=== PATIENT | female | born 1950 | race Caucasian/White ===

== ENCOUNTER 2019-03-08 13:50 | Emergency (ER) | payer OTHER, MEDICARE, SELFPAY ==
[2018-06-01 12:41] VITALS: BMI 37.0
[2019-03-08 13:53] VITALS: BP 123/54; PULSE 67; RESP 16; TEMP 36.5; O2SAT 99; BMI 37.2
--- NOTE | 2019-03-08 14:08 | EKG12_ITS ---
Test Reason : CP Blood Pressure : / mmHG Vent. Rate : 066 BPM Atrial Rate : 066 BPM P-R Int : 114 ms QRS Dur : 088 ms QT Int : 426 ms P-R-T Axes : 050 019 037 degrees QTc Int : 446 ms Normal sinus rhythm Normal ECG Confirmed by MARY ROSADO, TERRI ([id number]), medical transcription editor ELIE TIDWELL ([id number]) on 03/10/2019 11:03:46 AM Referred By: GURPREET Confirmed By:TERRI HERNANDEZ MD
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
--- NOTE | 2019-03-08 14:30 | NURSING ---
NO OLD EKGS
[2019-03-08 14:37] LABS: Absolute Lymphocyte Count 2.01 X10^3/uL (0.83-4.51); Absolute Neutrophil Count 4.6 X10^3/uL (2.0-7.7); Basophil# 0.02 X10^3/uL; Basophil% 0.3 % (0-1); Eosinophil# 0.08 X10^3/uL; Eosinophils% 1.1 % (0-5); Hematocrit 38.5 % (37-47); Hemoglobin 12.4 g/dL (12.0-15.0); Lymphocyte # 2.01 X10^3/ul (4.0); Lymphocyte % 27.3 % (19-41); Mean Corp Hgb Conc 32.2 g/dL (32-36); Mean Corpuscular Hgb 30.8 pg (27.0-32.0); Mean Corpuscular Volume 95.8 fL (81-99); Mean Platelet Vol. 10.7 fl (6.2-12.0); Monocyte# 0.58 X10^3/uL; Monocyte% 7.9 % (0-10); NRBC Flagged by Analyzer 0 % (0-5); Neutrophil # 4.59 X10^3/uL (2.7-7.7); Neutrophil % 62.2 % (47-70); Platelet Count 175 K/mm3 (150-450); RBC Distribution Width CV 13.2 % (11.6-14.6); Red Blood Count 4.02 M/mm3 (4.2-5.4); White Blood Count 7.4 K/mm3 (4.4-11.0)
[2019-03-08 14:56] LABS: ALB/GLOB Ratio 1.1 RATIO (0.9-2.4); AST(SGOT) 36 U/L (15-37); Alanine Aminotransfer ALT/SGPT 49 U/L (13-56); Albumin, Serum 3.8 g/dL (3.2-5.0); Alkaline Phosphatase 44 U/L (45-117); Anion Gap 9 (5-15); BUN 15 mg/dL (7-18); BUN/Creat Ratio 15.6 RATIO (10-20); Calcium,Total 9.5 mg/dL (8.5-10.1); Chloride 99 mmol/L (98-107); Creatinine, Serum 0.96 mg/dL (0.55-1.02); EST Glomerular Filtration Rate 61 mL/min (>60); Est Glom Filt Rate - Afr Amer 74 mL/min (>60); Estimated Creatinine Clearance 43.13 ml/min; Globulin 3.5 g/dL (2.2-4.2); Glucose 249 mg/dL (74-106); Potassium 3.6 mmol/L (3.5-5.1); Protein, Total 7.3 g/dL (6.4-8.2); Sodium Level 136 mmol/L (136-145)
[2019-03-08 15:41] VITALS: BP 110/38; PULSE 65; RESP 17; O2SAT 100
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
[2019-03-08 16:24] VITALS: BP 117/77; PULSE 61; RESP 17; O2SAT 98
== END 2019-03-08 16:25 | disposition home or self-care (01) ==
PROVIDERS: Emergency Provider Emergency Medicine; Family Provider Internal Medicine; PCP Internal Medicine
DX: S20.219A Contusion of unspecified front wall of thorax, initial encounter (principal); V89.2XXA Person injured in unspecified motor-vehicle accident, traffic, initial encounter; Y93.9 Activity, unspecified; Y92.9 Unspecified place or not applicable; Y99.9 Unspecified external cause status; E11.9 Type 2 diabetes mellitus without complications; I10 Essential (primary) hypertension; Z88.1 Allergy status to other antibiotic agents
CPT/HCPCS: 71046; 80053; 84484; 85025; 93005; 96360; 99285; J7040

== ENCOUNTER 2019-03-23 18:40 | Emergency (ER) | payer MEDICARE, OTHER, SELFPAY ==
[2019-03-23 18:41] VITALS: BP 118/50; PULSE 59; RESP 16; TEMP 36.7; O2SAT 100; BMI 33.8
--- NOTE | 2019-03-23 19:39 | CT_ITS ---
STUDY: CT ABDOMEN AND PELVIS WITH CONTRAST REASON FOR EXAM: Female, 68 years old. Right lower quadrant pain RADIATION DOSAGE (If Supplied By Facility): CTDIvol = ( 15.36 ) mGy, DLP = ( 881.42 ) mGycm TECHNIQUE: Transaxial images were obtained from the dome of the diaphragm to the symphysis pubis with oral contrast. IV/Oral Isovue 370 100 was administered. Sagittal and coronal images were reconstructed. Individualized dose optimization techniques were used for this CT. COMPARISON: None. FINDINGS: The visualized lung bases are unremarkable. The visualized portions of the heart are within normal limits. There is decreased attenuation of the liver consistent with steatosis. There is hepatomegaly. There are surgical clips in the gallbladder fossa consistent with a prior cholecystectomy. Normal spleen. Normal pancreas. Normal bilateral adrenal glands. Right kidney shows mild hydronephrosis and there is [id number] right hydroureter. There is thickening of the wall of the right collecting system and ureter are there is mild periureteral and peripelvic stranding. Findings are nonspecific and could represent a recently passed stone, but may also represent pyelonephritis. 5 mm parenchymal calcification in the mid posterior right kidney. Normal left kidney. Normal visualized stomach. Normal small intestine. There are multiple colonic diverticula consistent with diverticulosis. The appendix is visualized and appears normal. Normal abdominal aorta. Normal inferior vena cava. Normal retroperitoneum. Normal urinary bladder. There is atrophy of the uterus. Normal abdominal wall. There are diffuse degenerative changes of the visualized lumbar spine. CT/Abdomen/Pelvis WITH Contrast IMPRESSION: Mild right hydronephrosis and hydroureter. Thickened pelvic and ureteral wall. Findings are most suggestive of pyelonephritis. Electronically Signed: Sudeep Finn MD at 22:07 EST , Service support ,
--- NOTE | 2019-03-23 19:41 | ED.DCSUM_ITS ---
- ER Visit Summary Date of Service: 03/23/19 Chief Complaint: Right lower quadrant abdominal pain History of Present Illness: The patient is a 68 F presenting with right lower quadrant abdominal pain. She states this started today. Gradually worsened throughout the day. She has subjective fever and chills. She has nausea with no vomiting. She had loose stools today. She denies blood in her stool. She has had decreased appetite. She was concerned about possibility of appendicitis. She denies other complaints. Physical Examination: Vitals are stable. Patient is afebrile. Alert no acute distress. HEENT exam is unremarkable. Neck is supple. Lungs are clear and equal bilaterally. Heart is regular rate and rhythm. Abdomen is soft right lower quadrant tenderness with no rebound or guarding Extremities are unremarkable. Skin is warm and dry. No focal neurologic deficit. Remainder of exam is unremarkable. Emergency Department Course and Treatment: She was given Zofran IV. CBC normal except for hemoglobin 11.4. Chemistries show sodium 135, glucose 209, BUN 26, creatinine 1.20. Urinalysis shows 5-10 white blood cells, over [address] abdomen pelvis shows mild right hydronephrosis and hydroureter. Thickened pelvic and ureteral wall. Findings are most suggestive of pyelonephritis. Patient does have a remote history of kidney stones. She is pain-free on reevaluation. Urine culture was sent. This may represent a recently passed kidney stone. She will be started on Bactrim. She was given IV fluids. She is feeling improved in the ED. She will follow-up with her primary care physician. Advised return to the ED for worsening complaints. Disposition: Discharge home Impression: Right lower quadrant pain, pyelonephritis, possible recently passed kidney stone This note was generated with [employer] Realtime dictation software. It may contain incorrect words, spelling, and punctuation that were not noted in review of the chart prior to signing ED Disposition - Plan for ED Patient: Referrals: Subha Carvalho [Primary Care Provider] -
[2019-03-23] MEDS: Ondansetron 4 MG/2 ML Vial IV (20:05)
[2019-03-23 20:07] LABS: Bacteria 0 SEEN /hpf (None Seen); Squamous Epithelial Cells - UA 0 SEEN /hpf (5-10)
[2019-03-23 20:09] LABS: Absolute Lymphocyte Count 1.03 X10^3/uL (0.83-4.51); Absolute Neutrophil Count 8.2 X10^3/uL (2.0-7.7); Basophil# 0.02 X10^3/uL; Basophil% 0.2 % (0-1); Eosinophil# 0.01 X10^3/uL; Eosinophils% 0.1 % (0-5); Hematocrit 35.4 % (37-47); Hemoglobin 11.4 g/dL (12.0-15.0); Lymphocyte # 1.03 X10^3/ul (4.0); Lymphocyte % 10.7 % (19-41); Mean Corp Hgb Conc 32.2 g/dL (32-36); Mean Corpuscular Hgb 30.8 pg (27.0-32.0); Mean Corpuscular Volume 95.7 fL (81-99); Mean Platelet Vol. 10.9 fl (6.2-12.0); Monocyte# 0.39 X10^3/uL; NRBC Flagged by Analyzer 0 % (0-5); Neutrophil # 8.19 X10^3/uL (2.7-7.7); Neutrophil % 84.7 % (47-70); Platelet Count 213 K/mm3 (150-450); RBC Distribution Width CV 13.2 % (11.6-14.6); RBC Distribution Width SD 46.3 fl (35.1-43.9); White Blood Count 9.7 K/mm3 (4.4-11.0)
[2019-03-23 20:09] LABS: Color, Urine Yellow (Yellow); Glucose, Dipstick 1000 mg/dl (Normal); Leukocyte Esterase-Dipstick 25 /ul (Negative); Mucous, Urine 0 SEEN /hpf (<or=2+); Nitrite-Dipstick Negative (Negative); Occult Blood-Urine 250 /ul (Negative); Protein-Dipstick 30 mg/dl (Negative); Urine Bilirubin Dipstick Negative (Negative); Urine Clarity Cloudy (Clear); Urine Urobilinogen Normal (Normal)
[2019-03-23 20:11] LABS: Ketone-Dipstick 150 mg/dl (Negative)
[2019-03-23 20:34] LABS: Red Blood Cells-Urine > 100 SEEN /hpf (0-5)
[2019-03-23 20:35] LABS: White Blood Cells 5-10 SEEN /hpf (0-5)
[2019-03-23 20:49] LABS: Anion Gap 7 (5-15); BUN 26 mg/dL (7-18); BUN/Creat Ratio 21.7 RATIO (10-20); Calcium,Total 9.3 mg/dL (8.5-10.1); Chloride 101 mmol/L (98-107); EST Glomerular Filtration Rate 47 mL/min (>60); Est Glom Filt Rate - Afr Amer 57 mL/min (>60); Glucose 209 mg/dL (74-106); Potassium 4.6 mmol/L (3.5-5.1); Sodium Level 135 mmol/L (136-145)
[2019-03-23] MEDS: 0.9% Normal Saline 1,000 ML 999 ML IV (22:38)
--- NOTE | 2019-03-23 22:51 | ED.DEP ---
ED Disposition - Plan for ED Patient: Instructions: PYELONEPHRITIS, Female (Adult) Prescriptions: Smz/Tmp Ds [Bactrim Ds] 1 tablet PO BID #14 tablet Referrals: Subha Carvalho [Primary Care Provider] -
[2019-03-23] MEDS: Smz/Tmp Ds Tablet 1 TABLET PO (22:59)
[2019-03-23 23:19] VITALS: BP 113/52; PULSE 63; RESP 16; O2SAT 98
== END 2019-03-24 00:54 | disposition home or self-care (01) ==
LOC: ED 20:00
PROVIDERS: Emergency Provider Emergency Medicine; Family Provider Internal Medicine; PCP Internal Medicine
DX: N13.6 Pyonephrosis (principal); R10.31 Right lower quadrant pain; Z87.442 Personal history of urinary calculi
CPT/HCPCS: 74177; 80048; 81001; 85025; 87086; 87088; 96361; 96374; 99284; J7030; Q9967; J2405

== ENCOUNTER → 2020-07-19 14:44 | Outpatient (CLI) | payer MEDICARE, OTHER, SELFPAY ==
[2020-07-19 13:36] VITALS: BMI 35.5
[2020-07-19 16:59] LABS: Absolute Lymphocyte Count 1.44 X10^3/uL (0.83-4.51); Absolute Neutrophil Count 3.3 X10^3/uL (2.0-7.7); Basophil# 0.02 X10^3/uL; Basophil% 0.4 % (0-1); Eosinophil# 0.08 X10^3/uL; Eosinophils% 1.5 % (0-5); Hematocrit 36.8 % (37-47); Hemoglobin 11.6 g/dL (12.0-15.0); Lymphocyte # 1.44 X10^3/ul (4.0); Lymphocyte % 26.7 % (19-41); Mean Corp Hgb Conc 31.5 g/dL (32-36); Mean Corpuscular Hgb 30.4 pg (27.0-32.0); Mean Corpuscular Volume 96.6 fL (81-99); Mean Platelet Vol. 12.3 fl (6.2-12.0); Monocyte# 0.55 X10^3/uL; Monocyte% 10.2 % (0-10); NRBC Flagged by Analyzer 0 % (0-5); Neutrophil # 3.27 X10^3/uL (2.7-7.7); Neutrophil % 60.6 % (47-70); Platelet Count 177 K/mm3 (150-450); RBC Distribution Width CV 13.4 % (11.6-14.6); RBC Distribution Width SD 47.5 fl (35.1-43.9); Red Blood Count 3.81 M/mm3 (4.2-5.4); White Blood Count 5.4 K/mm3 (4.4-11.0)
[2020-07-19 17:08] LABS: Vitamin D,25 Hydroxy 30.4 ng/mL
[2020-07-19 17:10] LABS: Hemoglobin A1c 8.6 % (3.8-5.6)
[2020-07-19 17:12] LABS: ALB/GLOB Ratio 1.1 RATIO (0.9-2.4); AST(SGOT) 27 U/L (15-37); Alanine Aminotransfer ALT/SGPT 55 U/L (13-56); Albumin, Serum 3.6 g/dL (3.2-5.0); Alkaline Phosphatase 46 U/L (45-117); Anion Gap 7 (5-15); BUN 25 mg/dL (7-18); BUN/Creat Ratio 22.7 RATIO (10-20); Calcium,Total 9.4 mg/dL (8.5-10.1); Chloride 103 mmol/L (98-107); Cholesterol 181 mg/dL (200); EST Glomerular Filtration Rate 52 mL/min (>60); Est Glom Filt Rate - Afr Amer 63 mL/min (>60); Globulin 3.2 g/dL (2.2-4.2); Glucose 223 mg/dL (74-106); High Density Lipoprotein 48 mg/dL; Potassium 3.8 mmol/L (3.5-5.1); Protein, Total 6.8 g/dL (6.4-8.2); Sodium Level 137 mmol/L (136-145); Triglycerides 276 mg/dL; Very Low Density Lipoprotein 55 mg/dL (5-40)
[2020-07-19 17:18] LABS: Microalbumin,Random Urine 18.9 mg/L (NO RANGE EST.); Microalbumin:Creatinine Ratio 8.9 mg/g CRE (<30 mg/g CRE)
[2020-07-20 15:10] LABS: Ferritin 25 ng/mL (8-252); Iron 82 ug/dL (50-170); Iron Binding Capacity,Total 361 ug/dL (250-450)
== END ==
PROVIDERS: PCP Internal Medicine; Referring Provider Internal Medicine; Visit Provider Internal Medicine
DX: E11.9 Type 2 diabetes mellitus without complications (principal); M81.0 Age-related osteoporosis without current pathological fracture
CPT/HCPCS: 36415; 80053; 80061; 82043; 82306; 82570; 82728; 83036; 83540; 83550; 85025

== ENCOUNTER → 2020-08-22 14:27 | Outpatient (CLI) | payer MEDICARE, OTHER, SELFPAY ==
[2020-07-19 13:36] VITALS: BMI 35.5
--- NOTE | 2020-08-22 14:43 | BD_ITS ---
STUDY: DUAL ENERGY X-RAY ABSORPTIOMETRY / DXA REASON FOR EXAM: Female, 70 years old. Osteoporosis TECHNIQUE: Bone Mineral Density (BMD) measurements of lumbar spine and bilateral hips were obtained. COMPARISON: None. FINDINGS: Lumbar Spine (L1-L4): g/cm2 (1.006) / T-score (-1.3) / Z-score (0.4) Findings are suggestive of osteopenia with a low fracture risk. Left Femur Total: g/cm2 (0.800) / T-score (-1.7) / Z-score (-0.1) Left Femoral Neck: g/cm2 (0.651) / T-score (-2.8) / Z-score (-1.0) Right Femur Total: g/cm2 (0.809) / T-score (-1.6) / Z-score (0.0) Right Femoral Neck: g/cm2 (0.719) / T-score (-2.3) / Z-score (-0.5) BD/Dexa Bone Density Study IMPRESSION: The patient is considered osteoporotic as outlined below according to World Wilfredo Organization (WHO) criteria with a high fracture risk. Reference Information: The T-score is the number of standard deviations above or below the standard which is normal for young adults at their peak bone mineral density. The World Health Organization (WHO) interprets the T-scores as follows: Above -1 Normal bone density Between -1 and -2.5 Osteopenia Equal to / or below -2.5 Osteoporosis As a practical clinical guideline, osteopenia may be graded as follows: Mild -1 through -1.5 Moderate -1.6 through -2.0 Severe -2.1 through -2.4 The Z-score is the number of standard deviations above or below age-matched controls. A Z-score of less than -1.5 would be considered abnormal. References: 1. NIH Osteoporosis and Related Bone Diseases www osteo.org 2. International Society for Clinical Densitometry www iscd.org 3. National Osteoporosis Foundation www nof.org Electronically Signed: Tadeo Meneses MD at 15:52 EDT , Service support ,
== END ==
PROVIDERS: PCP Internal Medicine; Referring Provider Internal Medicine; Visit Provider Internal Medicine
DX: M81.0 Age-related osteoporosis without current pathological fracture (principal)
CPT/HCPCS: 77080

== ENCOUNTER → 2021-01-31 15:17 | Outpatient (CLI) | payer MEDICARE, OTHER, SELFPAY ==
[2021-01-31 17:23] LABS: ALB/GLOB Ratio 1.2 RATIO (0.9-2.4); AST(SGOT) 22 U/L (15-37); Alanine Aminotransfer ALT/SGPT 39 U/L (13-56); Albumin, Serum 3.6 g/dL (3.2-5.0); Alkaline Phosphatase 40 U/L (45-117); Anion Gap 8 (5-15); BUN 23 mg/dL (7-18); Calcium,Total 10.2 mg/dL (8.5-10.1); Chloride 101 mmol/L (98-107); Creatinine, Serum 0.85 mg/dL (0.55-1.02); EST Glomerular Filtration Rate 70 mL/min (>60); Est Glom Filt Rate - Afr Amer 84 mL/min (>60); Glucose 159 mg/dL (74-106); Potassium 4.1 mmol/L (3.5-5.1); Protein, Total 6.6 g/dL (6.4-8.2); Sodium Level 140 mmol/L (136-145)
== END ==
PROVIDERS: PCP Internal Medicine; Referring Provider Internal Medicine; Visit Provider Internal Medicine
DX: E11.9 Type 2 diabetes mellitus without complications (principal)
CPT/HCPCS: 36415; 80053

== ENCOUNTER → 2021-02-14 15:52 | Outpatient (CLI) | payer MEDICARE, OTHER, SELFPAY ==
--- NOTE | 2021-02-14 15:54 | MRI_ITS ---
STUDY: MRI BRAIN WITH AND WITHOUT CONTRAST REASON FOR EXAM: Female, 70 years old. Gait Abnormality TECHNIQUE: Standardized multiplanar fat and water weighted pulse sequences were obtained. IV 16 cc dotarem was administered for the contrast portion of the examination. COMPARISON: None. FINDINGS: Mild atrophy and periventricular white matter ischemic changes without mass effect or restricted diffusion. Normal bilateral basal ganglia. Normal thalami. There is no extra-axial fluid accumulation. Normal flow voids within the major intracranial circulation suggesting patency by spin echo criteria. Normal venous enhancement. There is no enhancing intra-axial or extra-axial abnormality. Normal sella turcica, pituitary gland, infundibular stalk, optic chiasm and hypothalamus. Normal tectal plate and pineal gland. Normal midbrain, artur and medulla. Normal cerebellum. Normal basal cisterns. Normal bilateral temporal bones. Normal bilateral internal auditory canals. Postsurgical changes of the orbits.. Normal visualized paranasal sinuses. Normal calvarium and skull base. Normal visualized soft tissue structures. Normal visualized upper cervical spine. MRI/Brain W/WO Contrast IMPRESSION: Atrophy and mild periventricular white matter ischemic changes without evidence for acute infarct. No enhancing lesions following contrast administration. Electronically Signed: Wei Hampton MD at 17:56 EDT , Service support ,
== END ==
PROVIDERS: PCP Internal Medicine; Visit Provider Internal Medicine
DX: R26.9 Unspecified abnormalities of gait and mobility (principal)
CPT/HCPCS: 70553; A9575

== ENCOUNTER → 2021-04-18 11:55 | Outpatient (CLI) | payer MEDICARE, OTHER, SELFPAY ==
[2021-04-18 15:39] LABS: Hemoglobin A1c 8.5 % (3.8-5.6)
[2021-04-18 15:41] LABS: ALB/GLOB Ratio 1.1 RATIO (0.9-2.4); AST(SGOT) 21 U/L (15-37); Alanine Aminotransfer ALT/SGPT 37 U/L (13-56); Albumin, Serum 3.5 g/dL (3.2-5.0); Alkaline Phosphatase 39 U/L (45-117); Anion Gap 10 (5-15); BUN 24 mg/dL (7-18); BUN/Creat Ratio 23.3 RATIO (10-20); Calcium,Total 10.2 mg/dL (8.5-10.1); Chloride 102 mmol/L (98-107); Creatinine, Serum 1.03 mg/dL (0.55-1.02); EST Glomerular Filtration Rate 56 mL/min (>60); Est Glom Filt Rate - Afr Amer 68 mL/min (>60); Globulin 3.2 g/dL (2.2-4.2); Glucose 269 mg/dL (74-106); Protein, Total 6.7 g/dL (6.4-8.2); Sodium Level 138 mmol/L (136-145)
== END ==
PROVIDERS: PCP Internal Medicine; Visit Provider Internal Medicine
DX: I10 Essential (primary) hypertension (principal); E11.9 Type 2 diabetes mellitus without complications
CPT/HCPCS: 36415; 80053; 82043; 82570; 83036

== ENCOUNTER → 2021-04-23 | Outpatient (CLI) | payer MEDICARE, OTHER, SELFPAY ==
[2021-04-23 12:47] LABS: Microalbumin,Random Urine 22.9 mg/L (NO RANGE EST.); Microalbumin:Creatinine Ratio 17.8 mg/g CRE (<30 mg/g CRE)
== END | disposition home or self-care (01) ==
LOC: LABSPEC 10:15
PROVIDERS: PCP Internal Medicine; Visit Provider Internal Medicine
DX: I10 Essential (primary) hypertension (principal); E11.9 Type 2 diabetes mellitus without complications
CPT/HCPCS: 82043; 82570

== ENCOUNTER 2021-07-25 14:02 | Outpatient (CLI) | payer MEDICARE, OTHER, SELFPAY ==
--- NOTE | 2021-07-25 14:49 | RAD_ITS ---
STUDY: AP PELVIS AND LEFT HIP SERIES OF 1454 HOURS ON 07/25/2021 REASON FOR EXAM: 71-year-old female with left hip pain. TECHNIQUE: 3 views of the pelvis and hip. COMPARISON: None. FINDINGS: Mild demineralization. No fractures or dislocations. Mild to moderate narrowing at the medial aspect of the left hip joint. No significant arthritic or degenerative changes of the joint. There is hypertrophic bone formation superior to the left greater trochanter. The adjacent pubic rami, ischium, and iliac crest has normal appearance. Sacroiliac joints are normal bilaterally . RAD/Hip Min 2 Views (Portable) IMPRESSION: 1. No fractures or dislocations. 2. Mild to moderate narrowing of the medial aspect left hip joint. 2. No significant arthritic or degenerative changes of the left hip joint. 4. Hypertrophic bone formation superior to the left greater trochanter. 5. Normal pelvic bones. 6. Normal appearing sacroiliac joints. Electronically Signed: Gentry Solomon MD at 2:27 EDT ,
[2021-07-25 15:11] LABS: Absolute Lymphocyte Count 1.63 X10^3/uL (0.83-4.51); Absolute Neutrophil Count 2.7 X10^3/uL (2.0-7.7); Basophil# 0.02 X10^3/uL; Basophil% 0.4 % (0-1); Hematocrit 37.5 % (37-47); Hemoglobin 11.8 g/dL (12.0-15.0); Lymphocyte # 1.63 X10^3/ul (0.83-4.51); Lymphocyte % 32.1 % (19-41); Mean Corp Hgb Conc 31.5 g/dL (32-36); Mean Corpuscular Hgb 29.6 pg (27.0-32.0); Mean Platelet Vol. 11.8 fl (6.2-12.0); Monocyte# 0.57 X10^3/uL; Monocyte% 11.2 % (0-10); NRBC Flagged by Analyzer 0 % (0-5); Neutrophil # 2.74 X10^3/uL (2.7-7.7); Neutrophil % 53.9 % (47-70); Platelet Count 160 K/mm3 (150-450); RBC Distribution Width CV 13.9 % (11.6-14.6); RBC Distribution Width SD 48.2 fl (35.1-43.9); Red Blood Count 3.99 M/mm3 (4.2-5.4); White Blood Count 5.1 K/mm3 (4.4-11.0)
[2021-07-25 15:21] LABS: Vitamin D,25 Hydroxy 38.1 ng/mL
[2021-07-25 15:23] LABS: ALB/GLOB Ratio 1.1 RATIO (0.9-2.4); AST(SGOT) 21 U/L (15-37); Alanine Aminotransfer ALT/SGPT 38 U/L (13-56); Albumin, Serum 3.9 g/dL (3.2-5.0); Alkaline Phosphatase 41 U/L (45-117); Anion Gap 6 (5-15); BUN 30 mg/dL (7-18); BUN/Creat Ratio 30.4 RATIO (10-20); Calcium,Total 9.8 mg/dL (8.5-10.1); Chloride 101 mmol/L (98-107); Cholesterol 222 mg/dL (200); Creatinine, Serum 0.99 mg/dL (0.55-1.02); EST Glomerular Filtration Rate 59 mL/min (>60); Est Glom Filt Rate - Afr Amer 71 mL/min (>60); Globulin 3.4 g/dL (2.2-4.2); Glucose 212 mg/dL (74-106); High Density Lipoprotein 48 mg/dL; Potassium 4.1 mmol/L (3.5-5.1); Protein, Total 7.3 g/dL (6.4-8.2); Sodium Level 136 mmol/L (136-145); Triglycerides 361 mg/dL; Very Low Density Lipoprotein 72 mg/dL (5-40)
== END 2021-07-25 23:59 | disposition home or self-care (01) ==
PROVIDERS: PCP Internal Medicine; Referring Provider Internal Medicine; Visit Provider Internal Medicine
DX: E11.69 Type 2 diabetes mellitus with other specified complication (principal); I10 Essential (primary) hypertension; M81.0 Age-related osteoporosis without current pathological fracture; M25.552 Pain in left hip
CPT/HCPCS: 36415; 73502; 80053; 80061; 82306; 85025

== ENCOUNTER → 2021-09-06 | Outpatient (CLI) | payer MEDICARE, OTHER, SELFPAY ==
--- NOTE | 2021-09-06 13:02 | MRI_ITS ---
STUDY: MR Spine Lumbar W/O Contrast 09/06/2021 7:11 PM REASON FOR EXAM: Female, 71 years old. Back pain left hip pain, low back pain TECHNIQUE: MR Spine Lumbar W/O Contrast Standardized fat and water weighted pulse sequences were obtained. COMPARISON: ct 03.23.19 FINDINGS: T12-L1: Loss of intervertebral disc height. There is endplate spondylosis of the vertebral body. Normal central canal and intervertebral neuroforamina. There is bilateral facet arthropathy. Normal lumbar lordosis. There is no substantial scoliosis. Normal conus medullaris that terminates at the L1. L1-2: Loss of intervertebral disc height. There is endplate spondylosis of the vertebral body. Normal central canal and intervertebral neuroforamina. There is bilateral facet arthropathy. L2-3: Loss of intervertebral disc height. There is bilateral facet arthropathy. There is endplate spondylosis of the vertebral body. Left paracentral disc herniation. This is causing left narrowing of the intervertebral neuroforamina. Compression of exiting nerve root. Narrowing of the left lateral recess. Likely compression of the descending left L3 nerve root. L3-4: Loss of intervertebral disc height. There is bilateral facet arthropathy. There is endplate spondylosis of the vertebral body. Broad-based disc herniation. This is causing narrowing of the intervertebral neuroforamina. Compression of exiting nerve root. Narrowing of the bilateral lateral recess. Likely compression of the descending bilateral L4 nerve root. Severe spinal stenosis. L4-5: Loss of intervertebral disc height. There is bilateral facet arthropathy. There is endplate spondylosis of the vertebral body. Grade 1 anterolisthesis of L4 on L5 measuring 4.8 mm. This is causing narrowing of the intervertebral neuroforamina. Compression of exiting nerve root. Narrowing of the bilateral lateral recess. Likely compression of the descending bilateral L5 nerve root. Severe spinal stenosis. There is bilateral ligamentum flavum thickening. L5-S1: Normal endplates. Normal disc height and morphology. Normal central canal and intervertebral neuroforamina. Normal visualized sacral ala. Normal visualized paraspinous soft tissue structures. MRI/Spine Lumbar (Routine) IMPRESSION: Multilevel degenerative changes, as described above. L2-3: Left paracentral disc herniation. This is causing left narrowing of the intervertebral neuroforamina. Compression of exiting nerve root. Narrowing of the left lateral recess. Likely compression of the descending left L3 nerve root. L3-4: Broad-based disc herniation. This is causing narrowing of the intervertebral neuroforamina. Compression of exiting nerve root. Narrowing of the bilateral lateral recess. Likely compression of the descending bilateral L4 nerve root. Severe spinal stenosis. L4-5: Grade 1 anterolisthesis of L4 on L5 measuring 4.8 mm. This is causing narrowing of the intervertebral neuroforamina. Compression of exiting nerve root. Narrowing of the bilateral lateral recess. Likely compression of the descending bilateral L5 nerve root. Severe spinal stenosis. Electronically Signed: Lakhwinder Perez MD at 19:20 EDT ,
== END | disposition home or self-care (01) ==
LOC: MRI 13:02
PROVIDERS: PCP Internal Medicine; Referring Provider Physician Assistant; Visit Provider Physician Assistant
DX: R20.2 Paresthesia of skin (principal); R20.0 Anesthesia of skin
CPT/HCPCS: 72148

== ENCOUNTER → 2022-07-03 | Outpatient (CLI) | payer MEDICARE, OTHER, SELFPAY ==
[2022-07-03 16:49] LABS: Absolute Lymphocyte Count 1.86 X10^3/uL (0.83-4.51); Absolute Neutrophil Count 2.4 X10^3/uL (2.0-7.7); Basophil# 0.03 X10^3/uL; Basophil% 0.6 % (0-1); Eosinophil# 0.16 X10^3/uL; Eosinophils% 3.2 % (0-5); Hemoglobin 11.2 g/dL (12.0-15.0); Lymphocyte # 1.86 X10^3/ul (0.83-4.51); Lymphocyte % 37.3 % (19-41); Mean Corp Hgb Conc 31.1 g/dL (32-36); Mean Corpuscular Hgb 30.2 pg (27.0-32.0); Mean Platelet Vol. 11.3 fl (6.2-12.0); Monocyte# 0.47 X10^3/uL; Monocyte% 9.4 % (0-10); NRBC Flagged by Analyzer 0 % (0-5); Neutrophil # 2.44 X10^3/uL (2.7-7.7); Neutrophil % 49.1 % (47-70); Platelet Count 177 K/mm3 (150-450); RBC Distribution Width CV 14.3 % (11.6-14.6); RBC Distribution Width SD 50.7 fl (35.1-43.9); Red Blood Count 3.71 M/mm3 (4.2-5.4)
[2022-07-03 17:05] LABS: Vitamin D,25 Hydroxy 55.1 ng/mL
[2022-07-03 17:09] LABS: ALB/GLOB Ratio 1.2 RATIO (0.9-2.4); AST(SGOT) 21 U/L (15-37); Alanine Aminotransfer ALT/SGPT 23 U/L (13-56); Albumin, Serum 3.7 g/dL (3.2-5.0); Alkaline Phosphatase 34 U/L (45-117); Anion Gap 9 (5-15); BUN 27 mg/dL (7-18); BUN/Creat Ratio 28.6 RATIO (10-20); Calcium,Total 10.3 mg/dL (8.5-10.1); Chloride 104 mmol/L (98-107); Creatinine, Serum 0.94 mg/dL (0.55-1.02); EST Glomerular Filtration Rate 62 mL/min (>60); Est Glom Filt Rate - Afr Amer 75 mL/min (>60); Globulin 3.2 g/dL (2.2-4.2); Glucose 93 mg/dL (74-106); Potassium 4.3 mmol/L (3.5-5.1); Protein, Total 6.9 g/dL (6.4-8.2); Sodium Level 141 mmol/L (136-145)
== END | disposition home or self-care (01) ==
LOC: BIMLAB 15:09
PROVIDERS: PCP Internal Medicine; Referring Provider Internal Medicine; Visit Provider Internal Medicine
DX: I10 Essential (primary) hypertension (principal); M81.0 Age-related osteoporosis without current pathological fracture
CPT/HCPCS: 36415; 80053; 82306; 85025

== ENCOUNTER → 2022-07-30 | Outpatient (CLI) | payer MEDICARE, OTHER, SELFPAY ==
[2022-07-30 17:56] LABS: Bacteria 0 SEEN /hpf (None Seen); Mucous, Urine 0 SEEN /hpf (<or=2+); Red Blood Cells-Urine 0 SEEN /hpf (0-5); Squamous Epithelial Cells - UA 0 SEEN /hpf (5-10)
[2022-07-30 18:14] LABS: Color, Urine Yellow (Yellow); Glucose, Dipstick 250 mg/dl (Normal); Ketone-Dipstick Negative (Negative); Leukocyte Esterase-Dipstick 25 /ul (Negative); Nitrite-Dipstick Negative (Negative); Occult Blood-Urine 10 /ul (Negative); Protein-Dipstick Negative (Negative); Specific Gravity, Urine 1.025 (1.002-1.030); Urine Bilirubin Dipstick Negative (Negative); Urine Clarity Clear (Clear); Urine Urobilinogen Normal (Normal)
[2022-07-30 19:08] LABS: White Blood Cells 0-5 SEEN /hpf (0-5)
== END | disposition home or self-care (01) ==
PROVIDERS: PCP Internal Medicine; Visit Provider Physician Assistant
DX: N39.0 Urinary tract infection, site not specified (principal)
CPT/HCPCS: 81001; 87086; 87088

== ENCOUNTER → 2022-08-30 | Outpatient (CLI) | payer MEDICARE, OTHER, SELFPAY ==
[2022-08-30 16:19] LABS: Amylase 55 U/L (25-115); CRP < 2.90 mg/L (0.0-3.0); LDH 216 U/L (84-246); Lipase 24 U/L (13-75)
[2022-08-30 22:39] LABS: Erythrocyte Sedimentation Rate 9 mm/hr (0-30)
[2022-09-02 15:08] LABS: Endomysial Antibody IgA Negative (Negative); Immunoglobulin A 144 mg/dL (64-422); t-Transglutaminase IgA <2 U/mL (0-3)
[2022-09-02 17:07] LABS: Anti-Centromere B Ab <0.2 AI (0.0-0.9); Anti-Chromatin <0.2 AI (0.0-0.9); Anti-Jo <0.2 AI (0.0-0.9); Anti-Scleroderma-70 AB <0.2 AI (0.0-0.9); Anti-dsDNA Ab <1 IU/mL (0-9); SJOGREN'S Anti-SS-A test < 0.2 AI (0.0-0.9); SJOGREN'S Anti-SS-B test < 0.2 AI (0.0-0.9); Smith Ab <0.2 AI (0.0-0.9)
[2022-09-05 19:07] LABS: Albumin 3.7 g/dL (2.9-4.4); Alpha-1-Globulins 0.3 g/dL (0.0-0.4); Alpha-2-Globulins 0.9 g/dL (0.4-1.0); Cytoplasmic Ab (C-ANCA) <1:20 titer (Neg:<1:20); Gamma Globulin 0.5 g/dL (0.4-1.8); Immunoglobulin A 135 mg/dL (64-422); Immunoglobulin E 13 IU/mL (6-495); Immunoglobulin G 535 mg/dL (586-1602); Immunoglobulin M 31 mg/dL (26-217); PROEL- TOTAL PROTEIN 6.4 g/dL (6.0-8.5); Perinuclear Ab (P-ANCA) <1:20 titer (Neg:<1:20)
== END | disposition home or self-care (01) ==
LOC: LAB 14:40
PROVIDERS: PCP Internal Medicine; Referring Provider Internal Medicine Gastroenterology; Visit Provider Internal Medicine Gastroenterology
DX: R15.9 Full incontinence of feces (principal); R19.7 Diarrhea, unspecified
CPT/HCPCS: 36415; 82150; 82784; 82785; 83516; 83615; 83690; 84165; 85652; 86140; 86225; 86235; 86255; 86256; 86334

== ENCOUNTER → 2022-09-04 | Outpatient (CLI) | payer MEDICARE, OTHER, SELFPAY ==
[2022-09-09 16:09] LABS: Calprotectin, Stool 82 ug/g (0-120)
[2022-09-10 13:08] LABS: Pancreatic Elastase, Fecal 75 (>200)
== END | disposition home or self-care (01) ==
PROVIDERS: PCP Internal Medicine; Referring Provider Internal Medicine Gastroenterology; Visit Provider Internal Medicine Gastroenterology
DX: R15.9 Full incontinence of feces (principal); K58.0 Irritable bowel syndrome with diarrhea
CPT/HCPCS: 82653; 83630; 83993; 87177; 87209; 87329

== ENCOUNTER → 2022-09-16 | Outpatient (CLI) | payer MEDICARE, OTHER, SELFPAY ==
--- NOTE | 2022-09-16 12:04 | NM_ITS ---
CLINICAL: 72-year-old female with suspected clinical gastroparesis. SEMI-SOLID PHASE 99m Tc SULFUR COLLOID GASTRIC EMPTYING STUDY COMPARISON: None available FINDINGS: The patient was administered 1.2 mCi of 99m Tc sulfur colloid mixed with oatmeal and consumed per os. Image acquisitions in the anterior-posterior projections were obtained for 60 minutes. There is prompt visualization of the stomach. There is no gastroesophageal reflux identified. The T ? raw data emptying was calculated to be 16.21 minutes, (Normal: 12-56 minutes). NM/Gastric Emptying Study IMPRESSION: 1. NORMAL 99m Tc sulfur colloid semi-solid phase (oatmeal) gastric emptying imaging examination. A. There is normal and preserved semi-solid phase gastric emptying compared to normal controls. (Toña et al, J Nucl Med Tech 38: 186, 2010). Electronically Signed: Antonio Gomez, at 23:19 EDT ,
== END | disposition home or self-care (01) ==
LOC: NM 11:57
PROVIDERS: PCP Internal Medicine; Referring Provider Internal Medicine Gastroenterology; Visit Provider Internal Medicine Gastroenterology
DX: R15.9 Full incontinence of feces (principal); E11.9 Type 2 diabetes mellitus without complications; R19.7 Diarrhea, unspecified
CPT/HCPCS: 78264; A9541

== ENCOUNTER → 2022-09-25 | Outpatient (CLI) | payer MEDICARE, OTHER, SELFPAY ==
--- NOTE | 2022-09-25 17:15 | RAD_ITS ---
EXAM: XR CERVICAL SPINE, 2 OR 3 VIEWS CLINICAL INDICATION: Spondylosis without myelopathy or radiculopathy, cervical region TECHNIQUE: Frontal and lateral views of the cervical spine. COMPARISON: No relevant prior studies available. FINDINGS: VERTEBRAE: There are anterior osteophytes at C5-C7. There is facet hypertrophy from C3 through C6. Preserved vertebral body height. No acute fracture. No spondylolisthesis. Preservation of the normal cervical lordosis. DISC SPACES: There is disc space narrowing at C5-6 and C6-7. SOFT TISSUES: Unremarkable. No prevertebral soft tissue widening. LUNG APICES: Clear. RAD/Cerv Spine 2 or 3 Views IMPRESSION: Multilevel degenerative change with disc space narrowing and facet hypertrophy. There is no acute osseous abnormality. Electronically Signed: Janes Choi MD at 17:31 EDT ,
== END | disposition home or self-care (01) ==
LOC: RAD 16:53
PROVIDERS: PCP Internal Medicine; Referring Provider Anesthesiology Pain Medicine; Visit Provider Anesthesiology Pain Medicine
DX: M47.812 Spondylosis without myelopathy or radiculopathy, cervical region (principal)
CPT/HCPCS: 72040

== ENCOUNTER → 2023-02-12 | Outpatient (CLI) | payer MEDICARE, OTHER, SELFPAY ==
[2023-02-12 13:55] LABS: Bacteria 0 SEEN /hpf (None Seen); Mucous, Urine 0 SEEN /hpf (<or=2+); Red Blood Cells-Urine 0 SEEN /hpf (0-5); Squamous Epithelial Cells - UA 0 SEEN /hpf (5-10); White Blood Cells 0 SEEN /hpf (0-5)
[2023-02-12 15:15] LABS: Color, Urine Yellow (Yellow); Glucose, Dipstick 1000 mg/dl (Normal); Ketone-Dipstick 5 mg/dl (Negative); Leukocyte Esterase-Dipstick Negative /ul (Negative); Nitrite-Dipstick Negative (Negative); Occult Blood-Urine Negative /ul (Negative); Protein-Dipstick Negative (Negative); Specific Gravity, Urine 1.015 (1.002-1.030); Urine Bilirubin Dipstick Negative (Negative); Urine Clarity Clear (Clear); Urine Urobilinogen Normal (Normal)
[2023-02-12 16:02] LABS: Microalbumin,Random Urine 6.1 mg/L (NO RANGE EST.); Microalbumin:Creatinine Ratio 7.9 mg/g CRE (<30 mg/g CRE)
== END | disposition home or self-care (01) ==
LOC: BIMLAB 13:51
PROVIDERS: PCP Internal Medicine; Visit Provider Internal Medicine
DX: R32 Unspecified urinary incontinence (principal); E11.9 Type 2 diabetes mellitus without complications
CPT/HCPCS: 81001; 82043; 82570

== ENCOUNTER → 2023-05-26 | Outpatient (CLI) | payer MEDICARE, SELFPAY ==
[2023-05-26 16:27] LABS: Absolute Lymphocyte Count 1.47 X10^3/uL (0.83-4.51); Absolute Neutrophil Count 4.2 X10^3/uL (2.0-7.7); Basophil# 0.03 X10^3/uL; Basophil% 0.5 % (0-1); Eosinophil# 0.15 X10^3/uL; Eosinophils% 2.3 % (0-5); Hematocrit 39.9 % (37-47); Hemoglobin 12.5 g/dL (12.0-15.0); Lymphocyte # 1.47 X10^3/ul (0.83-4.51); Lymphocyte % 22.9 % (19-41); Mean Corp Hgb Conc 31.3 g/dL (32-36); Mean Corpuscular Hgb 29.3 pg (27.0-32.0); Mean Corpuscular Volume 93.4 fL (81-99); Mean Platelet Vol. 11.7 fl (6.2-12.0); Monocyte# 0.56 X10^3/uL; Monocyte% 8.7 % (0-10); NRBC Flagged by Analyzer 0 % (0-5); Neutrophil % 65.3 % (47-70); Platelet Count 166 K/mm3 (150-450); RBC Distribution Width CV 12.7 % (11.6-14.6); RBC Distribution Width SD 43.3 fl (35.1-43.9); Red Blood Count 4.27 M/mm3 (4.2-5.4); White Blood Count 6.4 K/mm3 (4.4-11.0)
[2023-05-26 16:38] LABS: AST(SGOT) 18 U/L (15-37); Alanine Aminotransfer ALT/SGPT 29 U/L (13-56); Albumin, Serum 3.5 g/dL (3.2-5.0); Alkaline Phosphatase 56 U/L (45-117); Anion Gap 6 (5-15); BUN 17 mg/dL (7-18); BUN/Creat Ratio 16.7 RATIO (10-20); Calcium,Total 9.8 mg/dL (8.5-10.1); Chloride 104 mmol/L (98-107); Cholesterol 210 mg/dL (200); Creatinine, Serum 1.02 mg/dL (0.55-1.02); EST Glomerular Filtration Rate 56 mL/min (>60); Est Glom Filt Rate - Afr Amer 68 mL/min (>60); Globulin 3.5 g/dL (2.2-4.2); Glucose 205 mg/dL (74-106); High Density Lipoprotein 71 mg/dL; Potassium 3.5 mmol/L (3.5-5.1); Sodium Level 140 mmol/L (136-145); Triglycerides 156 mg/dL; Very Low Density Lipoprotein 31 mg/dL (5-40)
== END | disposition home or self-care (01) ==
LOC: BIMLAB 13:28
PROVIDERS: PCP Internal Medicine; Referring Provider Internal Medicine; Visit Provider Internal Medicine
DX: E11.9 Type 2 diabetes mellitus without complications (principal); I10 Essential (primary) hypertension
CPT/HCPCS: 36415; 80053; 80061; 85025

== ENCOUNTER 2023-11-11 09:17 | Emergency (ER) | payer MEDICARE, SELFPAY ==
[2023-11-11 09:17] VITALS: BP 136/65; PULSE 61; RESP 16; TEMP 36.6; O2SAT 98; BMI 39.3
--- NOTE | 2023-11-11 10:18 | CT_ITS ---
STUDY: CT CERVICAL SPINE WITHOUT CONTRAST REASON FOR EXAM: Female, 73 years old. neck pain RADIATION DOSAGE (If Supplied By Facility): CTDIvol = ( 26.7 ) mGy, DLP = ( 525.04 ) mGycm TECHNIQUE: High resolution transaxial imaging was performed without contrast material. Sagittal and coronal images were reconstructed. Individualized dose optimization techniques were used for this CT. COMPARISON: X-ray 09/25/2022 FINDINGS: Normal craniovertebral junction. There are degenerative changes of the anterior atlantoaxial articulation. Normal odontoid process. Normal cervical lordosis. Normal vertebral bodies and posterior osseous elements. C2-3: Mild left facet hypertrophy produces mild left neural foraminal stenosis. No central spinal stenosis. C3-4: Moderate bilateral facet hypertrophy produces mild bilateral neural foraminal stenosis. 2 mm of anterolisthesis of C3 on C4 with no central spinal stenosis. C4-5: Moderate bilateral facet hypertrophy produces mild bilateral neural foraminal stenosis. 2 mm of anterolisthesis of C4 on C5 with no central spinal stenosis. C5-6: Mild right facet hypertrophy produces mild right neural foraminal stenosis. Left uncovertebral hypertrophy produces moderate left neural foraminal stenosis. No central spinal stenosis. C6-7: Moderate broad disc osteophyte complex and bilateral degenerative hypertrophy produces moderate spinal stenosis and moderate bilateral neural foraminal stenosis. C7-T1: Normal endplates. Normal disc height and morphology. Normal central canal and intervertebral neuroforamina. Normal visualized soft tissue structures. CT/Spine Cervical without Contras IMPRESSION: 1. No acute fracture or subluxation. 2. Degenerative disc disease as described above. Electronically Signed: Antonio Corral MD at 11:32 EDT ,
--- NOTE | 2023-11-11 10:18 | CT_ITS ---
STUDY: CT BRAIN WITHOUT CONTRAST REASON FOR EXAM: Female, 73 years old. head injury RADIATION DOSAGE (If Supplied By Facility): CTDIvol = ( 44.99 ) mGy, DLP = ( 745.49 ) mGycm TECHNIQUE: Transaxial CT imaging of the brain was performed without administration of intravenous contrast material. Individualized dose optimization techniques were used for this CT. COMPARISON: No relevant priors. FINDINGS: Normal soft tissue structures. Normal calvarium. There is mild cerebral atrophy with widening of the extra-axial spaces and ventricular dilatation. Normal white matter tracts of the cerebral hemispheres. Normal basal ganglia and thalami. Normal brainstem. Normal cerebellum. There is no intracranial hemorrhage. There are no findings of an acute ischemic infarction. Normal visualized paranasal sinuses. CT/Brain/Head without Contrast IMPRESSION: Chronic involutional changes of the brain. Electronically Signed: Antonio Corral MD at 11:24 EDT ,
--- NOTE | 2023-11-11 10:19 | EX.ED.DYSGE1 ---
HPI History of Present Illness Chief Complaint: Fall Narrative Narrative: 73-year-old female presenting with head injury. She states that she was rushing to help her who had fallen in the bathroom and was moving too quickly lost her balance and fell hitting her head on the wood floor. No LOC. No visual complaints. No nausea or vomiting. No severe headache. Denies numbness or tingling. She does have chronic neck pain which does not seem to be worse. Patient is not on any anticoagulation. She states she was previously taking aspirin but stopped taking this recently. She states that she was concerned that her fell because he has a history of subdural hematoma and has debility dialysis since that and she is having trouble caring for him. [facility] Medical History Urinary incontinence Urinary tract infection with hematuria Osteoarthritis Left hip pain Hypertension Gait abnormality Health care maintenance GERD (gastroesophageal reflux disease) Anemia Arthritis Vision problem Skin cancer Osteoporosis Kidney stones Hives High cholesterol GI problem Gallstones Cataracts, bilateral Home Medications ?Medication ?Instructions ?Recorded ?Last Taken ?Type famotidine 20 mg tablet 20 mg PO BID 07/03/20 Unknown History blood sugar diagnostic #200 ea 08/07/20 Unknown Rx loratadine 10 mg tablet (Allergy 10 mg PO DAILY 07/25/21 Unknown History Relief (loratadine)) diabetic supplies, miscellan. (BD #1 ea 02/18/22 Unknown Rx Magni-Guide Insulin Syringe Magnifier) insulin NPH isoph U-100 human 100 8 unit subcut QPM 10/09/22 Unknown History unit/mL (3 mL) subcutaneous pen (Novolin N FlexPen) insulin NPH isoph U-100 human 100 14 unit subcut QAM 10/09/22 Unknown History unit/mL (3 mL) subcutaneous pen (Novolin N FlexPen) oxybutynin chloride 5 mg tablet 10 mg PO .q day PRN bladder 10/09/22 Unknown History aspirin 81 mg tablet,delayed 81 mg PO DAILY 01/21/23 Unknown History release (Adult Aspirin Regimen) alendronate 70 mg tablet 70 mg PO QWEEK #30 tabs 02/03/23 Unknown Rx dicyclomine 20 mg tablet mg PO 02/12/23 Unknown History ondansetron 4 mg disintegrating mg PO PRN 02/12/23 Unknown History tablet sulfamethoxazole 800 tab PO 02/12/23 Unknown History mg-trimethoprim 160 mg tablet gabapentin 100 mg capsule 100 mg PO DAILY 04/11/23 Unknown History glipizide 10 mg tablet 10 mg PO BID #180 tabs 06/09/23 Unknown Rx hydrochlorothiazide 25 mg tablet 25 mg PO DAILY #90 tabs 06/09/23 Unknown Rx lisinopril 5 mg tablet See Rx Instructions .Route 06/09/23 Unknown Rx .COMPLEX #90 tabs lovastatin 20 mg tablet See Rx Instructions .Route 06/09/23 Unknown Rx .COMPLEX #90 tabs blood sugar diagnostic (FreeStyle #100 ea 10/17/23 Unknown Rx Lite Strips) Allergy/AdvReac Type Severity Reaction Status Date / Time [place] [facility] [place]ergy Unknown Unknown Verified 07/11/23 14:23 Family History Brother Diabetes Sister Diabetes Father Heart disease Grandfather Colon cancer Surgical History Hx of cataract surgery Hx of cholecystectomy H/O tubal ligation H/O dilation and curettage S/P tonsillectomy and adenoidectomy Social History Smoking Status: Never smoker alcohol intake: current alcohol intake frequency: holidays/special occasions only substance use type: does not use what type of physical activity do you participate in: walking and bicycling ROS ROS ED Constitutional Constitutional ED: Denies chills, fever(s) or sweats Eyes Eyes: Denies blurry vision or change in vision ENT ENT ED: Denies ear pain or sore throat Cardiovascular Cardiovascular: Denies chest pain, palpitations or racing heartbeat Respiratory/Chest Respiratory/Chest: Denies cough, dyspnea or sputum Gastrointestinal Gastrointestinal: Denies abdominal pain, constipation, diarrhea, nausea or vomiting Genitourinary Genitourinary ED: Denies dysuria, hematuria or urinary frequency Musculoskeletal Musculoskeletal: Reports neck pain; Denies arthralgias or myalgias Integumentary Denies abscess, Abrasions or rash Neurologic Neurologic: Reports headache(s); Denies paresthesias or weakness Psychiatric Psychiatric: Denies anxiety, depression, suicidal ideation or suicidal thoughts Endocrine Endocrinology: Denies polydipsia or polyuria EXAM Physical Exam Const Vital Signs: 11/11/23 09:17 11/11/23 09:29 11/11/23 11:17 Temperature 97.9 F Temperature Source Oral Pulse Rate 61 62 Respiratory Rate 16 18 Respiratory Effort Normal Blood Pressure 136/65 H 130/60 H Blood Pressure Mean 88 83 Pulse Ox 98 98 Oxygen Delivery Method Room Air Positive well nourished General Appearance ED: NAD; Negative for pallor HEENT Reports TM's clear and moist mucous membranes Tympanic Membrane ED: Yes TM's clear bilateral Eyes PERRL and EOMs intact bilaterally Neck no lymphadenopathy Neck Narrative: Diffuse generalized neck pain. No step-offs or deformities. Resp normal respiratory effort and clear to auscultation bilaterally Auscultation: Negative for rales, rhonchi or wheezes Cardio regular rate and regular rhythm Extremity normal to inspection Neuro oriented x3 and CN's II-XII intact bilaterally Neuro Narrative: No focal neurologic deficits or lateralizing signs or symptoms. Sensorium / Orientation: alert Psych mental status grossly normal Skin no rashes or lesions noted General Skin Exam: Negative for jaundice or pallor MDM MDM MDM Narrative Medical decision making narrative: Patient presenting with head injury. She also has neck pain which is chronic. She has no other complaints and was in her usual state of health prior to rushing to help her up off the floor when she lost her balance and her head. She has a history of balance issues. Differential includes subdural hematoma, epidural hematoma, skull fracture, C-spine fracture. Patient does not have any facial bone tenderness. He does have a small bruise noted over the right upper forehead. CT brain and cervical spine are negative for acute findings. Patient counseled on results. I feel she stable for discharge. Impression: 1. Mechanical fall 2. Closed head injury Lab Data Attestation: I reviewed the patient's lab results. Radiography Diagnostic Testing: Clinical Impression(s) from Imaging Studies Brain CT 11/11/23 10:18 IMPRESSION: Chronic involutional changes of the brain. Electronically Signed: Antonio Corral MD at 11:24 EDT , Cervical Spine CT 11/11/23 10:18 IMPRESSION: 1. No acute fracture or subluxation. 2. Degenerative disc disease as described above. Electronically Signed: Antonio Corral MD at 11:32 EDT , Discharge Plan Triage Chief Complaint: Fall ED Provider: Darshan Corea Dx/Rx/DC Orders Instructions: ED Head Injury (Adult), ED Fall Prevention Prescriptions: No Action oxybutynin chloride 5 mg tablet 10 mg PO .q day PRN (Reason: bladder) famotidine 20 mg tablet 20 mg PO BID loratadine [Allergy Relief (loratadine)] 10 mg tablet 10 mg PO DAILY Novolin N FlexPen 100 unit/mL (3 mL) insulin pen 14 unit subcut QAM Novolin N FlexPen 100 unit/mL (3 mL) insulin pen 8 unit subcut QPM aspirin [Adult Aspirin Regimen] 81 mg tablet,delayed release (DR/EC) 81 mg PO DAILY ondansetron 4 mg tablet,disintegrating PO PRN Patient Comments: DISSOLVE 1 TABLET IN MOUTH EVERY 8 HOURS NEEDED FOR NAUSEA/VOMITING dicyclomine 20 mg tablet PO Patient Comments: TAKE 1 TABLET BY MOUTH EVERY 6 HOURS NEEDED FOR ABDOMINAL PAIN sulfamethoxazole-trimethoprim 800-160 mg tablet PO Patient Comments: TAKE 1 TABLET BY MOUTH TWICE DAILY FOR 7 DAYS gabapentin 100 mg capsule 100 mg PO DAILY (DME) blood sugar diagnostic Strip See Rx Instructions .ROUTE .MEDSUPPLY Qty: 200 3RF Rx Instructions: Check BID Free Style Lite strips (DME) BD Magni-Guide Syringe Magnifi Misc See Rx Instructions .Route Qty: 1 1RF Rx Instructions: As directed alendronate 70 mg tablet 70 mg PO QWEEK Qty: 30 1RF glipizide 10 mg tablet 10 mg PO BID Qty: 180 1RF hydrochlorothiazide 25 mg tablet 25 mg PO DAILY Qty: 90 2RF lisinopril 5 mg tablet See Rx Instructions .ROUTE .COMPLEX Qty: 90 2RF Dose Instruction: TAKE 1 TABLET DAILY Rx Instructions: TAKE 1 TABLET DAILY lovastatin 20 mg tablet See Rx Instructions .ROUTE .COMPLEX Qty: 90 2RF Dose Instruction: TAKE 1 TABLET AT BEDTIME Rx Instructions: TAKE 1 TABLET AT BEDTIME (DME) FreeStyle Lite Strips Strip See Rx Instructions .ROUTE .MEDSUPPLY Qty: 100 3RF Rx Instructions: three times daily Primary Care Provider: Elo Knight Referrals: Elo Knight MD [Primary Care Provider] - Print Language: Djiboutian Disposition Disposition: Home, Self Care
[2023-11-11 11:17] VITALS: BP 130/60; PULSE 62; RESP 18; O2SAT 98
--- NOTE | 2023-11-11 13:00 | CM.ED ---
Social Work Reason for Consult: Safety at home - patient fall and patient's with multiple falls Referral Source: ED nursing staff Notified by LAMONTE Mcmullen in the ED, of patient's co-presentation to the ED with her . Records reviewed and spoke with Addis Mora RN for updates. Patient's reportedly fell at home, which is reported as the 4th fall this week where EMS have been called to the home. Today, the patient fell trying to get her up and hit her head. Patient wanted herself and to come to hospital to get checked out. [facility] ([facility]) Marianela Batres to the ED to meet with patient and . APS was called on Friday with plan to see patient and today at home, but then got call about patient coming to the ED today. Also present, APS worker Salome. This consumer loan underwriter, along with APS representatives first patient and then with patient's . Introduced to self and role. Patient is in support of her going short term only SNF stay, so long as this would be covered by insurance. just got out of a senior living on 11.04.2023. Patient is unwilling to apply for Medicaid, for any type of support or to consider terminal gauger NF care for her . Patient acknowledges having a hard time caring for right now, therefore agreeable to short term SNF. Patient admits to having a hard time trusting people, so does not always want to share information. Patient's brother was in the room at onset of discussion, with patient's expressed permission, but when the brother spoke up to clarify the information patient was offering the patient kicked her brother out of room stating her brother who has bipolar disorder can be a bully, though this consumer loan underwriter was uncertain what the brother was bullying the patient about. Patient denies any falls herself, outside of trying to help her off the floor today. Home is one floor. 3 steps to enter. PCP - Dr. Knight DME: Sleeping in a recliner glider at home this last week to be close to ; denies use of any DME for self. Transportation: Patient has never driven;normally the ; has been getting rides from friends from [employer]. Family support: Patient's of 49 years; no kids; patient has 2 brothers and 1 sister and 1 1/2 sister; brother Valentin Marte [phone] present in the ED as support to patient and patient's . Advance Directives: Not on file; do not believe this has been done Work: Reports to work once a week, half day at the [employer]. Patient reports to feel safe going home and caring for self. Reports can order grocery pickle pumper. Denies any additional service needs for self. APS in the department aware of likely discharge home and reports plan to keep case open for now. Plan: Home with patient's brother who is in department to help get patient home. -DOMENICO Mccain
[2023-11-11 13:43] VITALS: BP 122/66; PULSE 53; RESP 16; TEMP 36.6; O2SAT 97
== END 2023-11-11 13:47 | disposition home or self-care (01) ==
PROVIDERS: Emergency Provider Student in an Organized Health Care Education/Training Program; PCP Internal Medicine; Visit Provider Student in an Organized Health Care Education/Training Program
DX: S00.83XA Contusion of other part of head, initial encounter (principal); W18.39XA Other fall on same level, initial encounter; Y93.89 Activity, other specified; Y99.8 Other external cause status; I10 Essential (primary) hypertension; Z79.899 Other long term (current) drug therapy
CPT/HCPCS: 70450; 72125; 99282

== ENCOUNTER → 2024-02-19 | Outpatient (CLI) | payer MEDICARE, SELFPAY ==
[2024-02-19 18:08] LABS: Absolute Lymphocyte Count 2.49 X10^3/uL (0.83-4.51); Basophil# 0.03 X10^3/uL; Basophil% 0.4 % (0-1); Eosinophil# 0.11 X10^3/uL; Eosinophils% 1.3 % (0-5); Hematocrit 36.9 % (37-47); Lymphocyte # 2.49 X10^3/ul (0.83-4.51); Lymphocyte % 30.1 % (19-41); Mean Corp Hgb Conc 32.5 g/dL (32-36); Mean Corpuscular Hgb 29.6 pg (27.0-32.0); Mean Corpuscular Volume 91.1 fL (81-99); Mean Platelet Vol. 11.4 fl (6.2-12.0); Monocyte# 0.58 X10^3/uL; NRBC Flagged by Analyzer 0 % (0-5); Neutrophil # 5.03 X10^3/uL (2.7-7.7); Neutrophil % 60.7 % (47-70); Platelet Count 201 K/mm3 (150-450); RBC Distribution Width CV 13.4 % (11.6-14.6); RBC Distribution Width SD 45.2 fl (35.1-43.9); Red Blood Count 4.05 M/mm3 (4.2-5.4); White Blood Count 8.3 K/mm3 (4.4-11.0)
[2024-02-19 18:32] LABS: ALB/GLOB Ratio 1.2 RATIO (0.9-2.4); AST(SGOT) 16 U/L (15-37); Alanine Aminotransfer ALT/SGPT 25 U/L (13-56); Albumin, Serum 3.7 g/dL (3.2-5.0); Alkaline Phosphatase 45 U/L (45-117); Anion Gap 8 (5-15); BUN 30 mg/dL (7-18); BUN/Creat Ratio 29.7 RATIO (10-20); Calcium,Total 10.4 mg/dL (8.5-10.1); Chloride 103 mmol/L (98-107); Creatinine, Serum 1.01 mg/dL (0.55-1.02); EST Glomerular Filtration Rate 57 mL/min (>60); Est Glom Filt Rate - Afr Amer 69 mL/min (>60); Globulin 3.2 g/dL (2.2-4.2); Glucose 194 mg/dL (74-106); Potassium 3.6 mmol/L (3.5-5.1); Protein, Total 6.9 g/dL (6.4-8.2); Sodium Level 136 mmol/L (136-145)
[2024-02-19 19:24] LABS: Hemoglobin A1c 8.1 % (3.8-5.6)
[2024-02-20 11:15] LABS: Vitamin D,25 Hydroxy 33.9 ng/mL
== END | disposition home or self-care (01) ==
LOC: MFPLAB 16:35
PROVIDERS: PCP Family Medicine; Visit Provider Family Medicine
DX: I10 Essential (primary) hypertension (principal); E11.9 Type 2 diabetes mellitus without complications; M54.30 Sciatica, unspecified side
CPT/HCPCS: 36415; 80053; 82306; 83036; 85025

== ENCOUNTER → 2024-03-10 | Outpatient (CLI) | payer MEDICARE, SELFPAY ==
[2024-03-10 18:14] LABS: Anion Gap 5 (5-15); BUN 15 mg/dL (7-18); BUN/Creat Ratio 17.6 RATIO (10-20); Calcium,Total 9.4 mg/dL (8.5-10.1); Chloride 106 mmol/L (98-107); Creatinine, Serum 0.85 mg/dL (0.55-1.02); EST Glomerular Filtration Rate 69 mL/min (>60); Est Glom Filt Rate - Afr Amer 83 mL/min (>60); Glucose 159 mg/dL (74-106); Potassium 3.8 mmol/L (3.5-5.1); Sodium Level 138 mmol/L (136-145)
[2024-03-10 18:17] LABS: PTHIN 79.7 pg/mL (18.4-80.1)
== END | disposition home or self-care (01) ==
LOC: MTLAB 15:33
PROVIDERS: PCP Family Medicine; Referring Provider Family Medicine; Visit Provider Family Medicine
DX: R60.0 Localized edema (principal); E83.52 Hypercalcemia
CPT/HCPCS: 36415; 80048; 83970